=== PATIENT | female | born 1955 | race Caucasian/White ===

== ENCOUNTER 2021-05-18 18:28 | Emergency (ER) | payer MEDICARE, OTHER ==
[2021-05-18 19:52] LABS: BASOPHIL 0.2 % (0-2); EOSINOPHIL 0 % (0-5); HGB 14.5 g/dl (12.5-16.0); LYMPHOCYTE 5.8 % (15-48); MCV 91.1 fL (78.0-100.0); MONOCYTE 8.7 % (0-12); MPV 9.2 fL (6.0-9.5); NEUTROPHIL 84.9 % (41-80); NRBC 0; PLT 323 K/uL (150-400); RBC 4.83 M/uL (4.20-5.40); RDW 12.2 % (11.5-14.0); WBC 10.3 K/uL (4.0-10.5)
[2021-05-18 19:55] LABS: ALBUMIN 3.7 g/dL (3.4-5.0); BILIRUBIN - TOTAL 0.3 mg/dL (0.2-1.0); BUN/CREAT RATIO (CALC) 34.8 RATIO; CREATININE 0.46 mg/dL (0.51-0.95); GLOBULIN (CALCULATION) 4.4 g/dL; POTASSIUM 3.5 mmol/L (3.5-5.1); TOTAL PROTEIN 8.1 g/dL (6.4-8.2)
[2021-05-18] MEDS ORDERED: ZOFRAN4 M1 PO (23:53)
== END 2021-05-19 01:30 | disposition home or self-care (01) ==
LOC: FER 18:28
PROVIDERS: Nurse Practitioner Family
DX: R11.2 Nausea with vomiting, unspecified (principal); Z88.1 Allergy status to other antibiotic agents
CPT/HCPCS: 36415; 80053; 85025; J2405; J7030